=== PATIENT | female | born 1985 | race Caucasian/White ===

== ENCOUNTER 2017-10-28 11:35 | Emergency (ER) | payer OTHER ==
[~2017-10-28] VITALS: Ht 160 cm; Wt 50.1 kg
[2017-10-28 11:39] VITALS: Ht 160 cm; Wt 50.1 kg
[2017-10-28 13:31] VITALS: BP 96/62
== END 2017-10-28 13:31 | disposition home or self-care (01) ==
LOC: ED 11:35
DX: K58.0 Irritable bowel syndrome with diarrhea (principal); R11.10 Vomiting, unspecified
CPT/HCPCS: Q0162